=== PATIENT | male | born 1960 | race Caucasian/White ===

== ENCOUNTER 2021-04-04 11:16 | Inpatient (IN) | payer OTHER ==
[2021-04-04] MEDS ORDERED: SODIUM CHLORIDE 1,000 ML IV STA ×2 (12:52→16:39)
[2021-04-04] MEDS ORDERED: ONDANSETRON 4 MG/2 ML VIAL IVPUSH ONE ×2 (12:53→16:39)
[2021-04-04] MEDS ORDERED: ONDANSETRON 4 MG/2 ML VIAL ONE ×2 (12:56→17:48)
[2021-04-04 13:24] LABS: BASO % 0.6 % (0-2.0); EOS % 0.1 % (0-4.5); HEMATOCRIT 46.2 % (35.4-49); HEMOGLOBIN 15.9 GM/dL (11.7-16.9); LYMPH % 21.8 % (8-40); MCH 28.7 pg (25.7-33.7); MCHC 34.4 g/dl (32.0-35.9); MEAN CELL VOLUME 83.6 fl (80-96); MEAN PLT VOLUME 7.5 fl (7.5-11.1); MONO % 6.7 % (3.8-10.2); NEUT % 70.8 % (42.8-82.8); PLATELET COUNT 390 10^3/uL (134-434); RBC 5.52 M/mm3 (4.00-5.60); RDW 15.4 % (11.9-15.9); WHITE BLOOD COUNT 10.5 K/mm3 (4.0-10.0)
[2021-04-04] MEDS ORDERED: METOCLOPRAMIDE HCL INJECTION 10 MG/2 ML VIAL IVPB ONE (13:35)
[2021-04-04] MEDS ORDERED: LORazepam 2 MG/ML SDV VIAL IVPUSH ONE (13:35)
[2021-04-04 13:44] LABS: CALCIUM 10.7 mg/dL (8.5-10.1)
[2021-04-04 13:45] LABS: ALBUMIN 4.5 g/dl (3.4-5.0); BLOOD UREA NITROGEN 25.8 mg/dL (7-18)
[2021-04-04 13:48] LABS: CREATININE 1.3 mg/dL (0.55-1.3)
[2021-04-04 13:49] LABS: BILIRUBIN,TOTAL 0.7 mg/dL (0.2-1); TOT PROT 8.7 g/dl (6.4-8.2)
[2021-04-04] MEDS ORDERED: METOCLOPRAMIDE HCL INJECTION 10 MG/2 ML VIAL ONE ×2 (14:04→19:12)
[2021-04-04] MEDS ORDERED: LORazepam 2 MG/ML SDV VIAL ONE (14:05)
[2021-04-04] MEDS ORDERED: PANTOPRAZOLE SODIUM 40 MG VIAL IVPUSH ONE (16:37)
[2021-04-04] MEDS ORDERED: PANTOPRAZOLE SODIUM 40 MG VIAL ONE (17:48)
[2021-04-04] MEDS ORDERED: METOCLOPRAMIDE HCL INJECTION 10 MG/2 ML VIAL IVPUSH ONE (19:09)
[2021-04-04] MEDS ORDERED: HALOPERIDOL LACTATE 5 MG/ML IM ONE (19:35)
[2021-04-04] MEDS ORDERED: PROCHLORPERAZINE INJECTION 10 MG/2 ML VIAL IVPB PRN (22:35)
[2021-04-04] MEDS ORDERED: SODIUM CHLORIDE 1,000 ML IV SCH ×2 (22:45)
[2021-04-05 01:49] LABS: MAGNESIUM 2.2 mg/dL (1.8-2.4)
[2021-04-05] MEDS ORDERED: LORazepam 2 MG/ML SDV VIAL IVPUSH ONE (03:52)
[2021-04-05 04:35] LABS: EPI CELLS 5 /uL (0-25.1); HYALINE CASTS 2 /uL (0-3.1); URINE APPEARANCE CLEAR; URINE BACTERIA 3 /uL (0-1359); URINE BILIRUBIN NEGATIVE (NEGATIVE); URINE COLOR YELLOW; URINE GLUCOSE (UA) NEGATIVE (NEGATIVE); URINE KETONE TRACE (NEGATIVE); URINE LEUK ESTERASE NEGATIVE (NEGATIVE); URINE NITRITE NEGATIVE (NEGATIVE); URINE PROTEIN TRACE (NEGATIVE); URINE RBC 16 /uL (0-23.9); URINE WBC 3 /uL (0-25.8)
[2021-04-05 04:58] VITALS: BMI 35.9
[2021-04-05] MEDS ORDERED: MEPERIDINE HCL 25 MG/ML VIAL IVPUSH PRN (08:57)
[2021-04-05 09:09] LABS: HEMATOCRIT 41.8 % (35.4-49); MCH 28.3 pg (25.7-33.7); MCHC 33.6 g/dl (32.0-35.9); MEAN CELL VOLUME 84.2 fl (80-96); MEAN PLT VOLUME 7.7 fl (7.5-11.1); PLATELET COUNT 320 10^3/uL (134-434); RBC 4.96 M/mm3 (4.00-5.60); RDW 14.9 % (11.9-15.9); WHITE BLOOD COUNT 8.2 K/mm3 (4.0-10.0)
[2021-04-05 09:23] LABS: ALBUMIN 3.7 g/dl (3.4-5.0); BLOOD UREA NITROGEN 18.8 mg/dL (7-18)
[2021-04-05 09:24] LABS: MAGNESIUM 2.2 mg/dL (1.8-2.4)
[2021-04-05 09:27] LABS: PHOSPHOROUS 2.8 mg/dL (2.5-4.9)
[2021-04-05 09:28] LABS: BILIRUBIN,TOTAL 0.7 mg/dL (0.2-1); TOT PROT 7.1 g/dl (6.4-8.2)
[2021-04-05] MEDS ORDERED: LORazepam 2 MG/ML SDV VIAL IVPUSH PRN (09:29)
[2021-04-05] MEDS ORDERED: MEPERIDINE HCL 25 MG/ML VIAL IVPB PRN (09:32)
[2021-04-05 09:33] LABS: CALCIUM 8.9 mg/dL (8.5-10.1)
[2021-04-05] MEDS: DEXTROSE 5%-0.45% SALINE 1,000 ML IV SCH (15:13)
[2021-04-05] MEDS: METOCLOPRAMIDE HCL INJECTION 10 MG/2 ML VIAL IVPUSH PRN (17:35)
[2021-04-05] MEDS: HEPARIN NA (PORCINE) 5,000 UNITS/ML 1ML VIAL SQ SCH (21:30)
[2021-04-06] MEDS ORDERED: MELATONIN 5 MG TABLETS PO ONE (01:12)
[2021-04-06] MEDS: DEXTROSE 5%-0.45% SALINE 1,000 ML IV SCH ×4 (01:16→23:36)
[2021-04-06] MEDS: HEPARIN NA (PORCINE) 5,000 UNITS/ML 1ML VIAL SQ SCH ×3 (06:16→21:01)
[2021-04-06] MEDS: METOCLOPRAMIDE HCL INJECTION 10 MG/2 ML VIAL IVPUSH PRN (07:52)
[2021-04-06 08:46] LABS: BASO % 0.6 % (0-2.0); EOS % 0.4 % (0-4.5); HEMATOCRIT 40.9 % (35.4-49); HEMOGLOBIN 14.3 GM/dL (11.7-16.9); LYMPH % 31.8 % (8-40); MCH 28.8 pg (25.7-33.7); MCHC 34.9 g/dl (32.0-35.9); MEAN CELL VOLUME 82.6 fl (80-96); MEAN PLT VOLUME 7.5 fl (7.5-11.1); MONO % 7.9 % (3.8-10.2); NEUT % 59.3 % (42.8-82.8); PLATELET COUNT 284 10^3/uL (134-434); RBC 4.95 M/mm3 (4.00-5.60); RDW 14.8 % (11.9-15.9); WHITE BLOOD COUNT 6.6 K/mm3 (4.0-10.0)
[2021-04-06 09:06] LABS: CHLORIDE 104 mmol/L (98-107); SODIUM 137 mmol/L (136-145)
[2021-04-06 09:09] LABS: ALBUMIN 3.8 g/dl (3.4-5.0); CALCIUM 9.2 mg/dL (8.5-10.1); CO2 22 mmol/L (21-32); GLUCOSE,RANDOM 131 mg/dL (74-106)
[2021-04-06 09:11] LABS: CREATININE 0.9 mg/dL (0.55-1.3); SGOT/AST 21 U/L (15-37); SGPT/ALT 28 U/L (13-61)
[2021-04-06 09:12] LABS: PHOSPHOROUS 1.6 mg/dL (2.5-4.9)
[2021-04-06 09:13] LABS: BILIRUBIN,TOTAL 0.9 mg/dL (0.2-1); TOT PROT 7.3 g/dl (6.4-8.2)
[2021-04-06 09:14] LABS: ALK PHOS 94 U/L (45-117)
[2021-04-06 09:19] LABS: ANION GAP 11 MMOL/L (8-16)
[2021-04-06] MEDS ORDERED: PT OWN MED DRAWER 7, Y5N ONE (09:36)
[2021-04-06] MEDS: PROCHLORPERAZINE INJECTION 10 MG/2 ML VIAL IVPB PRN ×2 (09:47→17:54)
[2021-04-06] MEDS: KCL 10 MEQ IVPB 10 MEQ/100 ML INFUS.BAG IVPB SCH ×3 (09:49→12:40)
[2021-04-06] MEDS ORDERED: ACETAMINOPHEN 1000 MG/100 ML VIAL (NON FORMULARY) IVPB ONE (11:51)
[2021-04-06] MEDS ORDERED: MAGNESIUM SULF 50% (8.12 MEQ/2 ML-1 GM VIAL) IVPB ONE (11:53)
[2021-04-06 12:13] LABS: OPIATES, URI NEGATIVE (NEGATIVE); PHENCYCLIDINE,URINE NEGATIVE (NEGATIVE); URINE BARBITURATES NEGATIVE (NEGATIVE)
[2021-04-06 12:14] LABS: COCAINE, UR NEGATIVE (NEGATIVE); METHADONE, UR NEGATIVE (NEGATIVE)
[2021-04-06 12:47] LABS: URINE AMPHETAMINES NEGATIVE (NEGATIVE); URINE BENZODIAZEPINES NEGATIVE (NEGATIVE)
[2021-04-06] MEDS: FAMOTIDINE 20 MG/50 ML IVPB 20 MG/50 ML MG IVPB SCH ×2 (14:01→21:01)
[2021-04-07] MEDS: HEPARIN NA (PORCINE) 5,000 UNITS/ML 1ML VIAL SQ SCH ×3 (06:18→21:15)
[2021-04-07 07:30] LABS: BASO % 0.5 % (0-2.0); HEMATOCRIT 42.4 % (35.4-49); HEMOGLOBIN 14.7 GM/dL (11.7-16.9); LYMPH % 37.4 % (8-40); MCH 28.6 pg (25.7-33.7); MCHC 34.7 g/dl (32.0-35.9); MEAN CELL VOLUME 82.5 fl (80-96); MEAN PLT VOLUME 7.4 fl (7.5-11.1); MONO % 8.3 % (3.8-10.2); NEUT % 52.8 % (42.8-82.8); PLATELET COUNT 314 10^3/uL (134-434); RBC 5.15 M/mm3 (4.00-5.60); RDW 14.9 % (11.9-15.9); WHITE BLOOD COUNT 7.1 K/mm3 (4.0-10.0)
[2021-04-07 07:52] LABS: CALCIUM 9.2 mg/dL (8.5-10.1)
[2021-04-07 07:53] LABS: ALBUMIN 3.9 g/dl (3.4-5.0); BLOOD UREA NITROGEN 10.9 mg/dL (7-18); MAGNESIUM 2.4 mg/dL (1.8-2.4)
[2021-04-07 07:56] LABS: CREATININE 1.1 mg/dL (0.55-1.3); PHOSPHOROUS 3.2 mg/dL (2.5-4.9)
[2021-04-07 07:57] LABS: BILIRUBIN,TOTAL 0.9 mg/dL (0.2-1); TOT PROT 7.8 g/dl (6.4-8.2)
[2021-04-07] MEDS: FAMOTIDINE 20 MG/50 ML IVPB 20 MG/50 ML MG IVPB SCH (09:26)
[2021-04-07] MEDS: KCL 10 MEQ IVPB 10 MEQ/100 ML INFUS.BAG IVPB SCH ×2 (11:02→12:27)
[2021-04-07] MEDS: DEXTROSE 5%-0.45% SALINE 1,000 ML IV SCH ×2 (11:03→18:32)
[2021-04-07] MEDS: PROCHLORPERAZINE INJECTION 10 MG/2 ML VIAL IVPB PRN (11:03)
[2021-04-07] MEDS ORDERED: LORazepam 0.5 MG TABLET PO PRN (11:32)
[2021-04-07] MEDS ORDERED: PANTOPRAZOLE SODIUM 40 MG VIAL IVPUSH SCH (15:15)
[2021-04-07 21:15] VITALS: TEMP 98.4
[2021-04-08] MEDS: HEPARIN NA (PORCINE) 5,000 UNITS/ML 1ML VIAL SQ SCH (05:31)
[2021-04-08 06:01] VITALS: BP 129/99; PULSE 70
[2021-04-08] MEDS ORDERED: ATORVASTATIN CA 20 MG TABLET (FP) PO SCH (22:00)
== END 2021-04-08 10:52 | disposition left against medical advice (07) | DRG 282 ==
LOC: JER 11:16 → JERBED 21:41 → OBSVTOIN 22:31 → J6S 04-05 02:58
PROVIDERS: ADMIT Hospitalist; ATTEND Internal Medicine
DX: K85.90 Acute pancreatitis without necrosis or infection, unspecified (principal); R11.2 Nausea with vomiting, unspecified; F12.20 Cannabis dependence, uncomplicated; R94.31 Abnormal electrocardiogram [ECG] [EKG]; F41.9 Anxiety disorder, unspecified; F12.288 Cannabis dependence with other cannabis-induced disorder; E78.5 Hyperlipidemia, unspecified; E86.0 Dehydration
CPT/HCPCS: 36415; 71046-TC-FY; 74018-TC-FY; 74177-TC; 76705-TC; 80053; 80061; 80307; 81003; 82962; 83036; 83690; 83721; 83735; 84100; 84478; 85025; 85027; 86140; 93005; 93010; 97116-GP; 97161-GP; 99285-25; C9803; G0378; J0131; J1644; Q9967; U0003; U0005